=== PATIENT | female | born 1985 | race Caucasian/White ===

== ENCOUNTER 2018-04-25 23:26 | Emergency (ER) | payer MEDICAID ==
[~2018-04-25] VITALS: Ht 165.1 cm; Wt 98.4 kg
[2018-04-25 23:33] VITALS: BP 147/90
--- NOTE | 2018-04-25 23:45 | NUR ---
PT AMBULATED TO LOBBY WITH VSS. PROVIDED PT WITH URINE CUP.
--- NOTE | 2018-04-25 23:45 | NUR ---
BIB SELF CO VAGINAL BLEEDING SINCE YESTERDAY. PT IS 7 WEEKS . PT ALSO CO 8/10 STABBING ABDOMINAL PAIN THAT RADIATES TO LOWER BACK THAT COMES AND GOES. VSS. PT POSITIONED FOR COMFORT. SIDE RAIL UP X 1. ERMD MADE AWARE.
[2018-04-26 00:18] LABS: BASOPHILS % (AUTO) 0.6 % (0.0-2.0); EOSINOPHILS # (AUTO) 0.1 K/uL (0-0.4); EOSINOPHILS % (AUTO) 1.3 % (0.0-4.0); HEMATOCRIT 39.1 % (36-48); LYMPHOCYTES # (AUTO) 3.8 K/uL (2.5-16.5); MEAN CORPUSCULAR HEMOGLOBIN 28 pg (27-31); MEAN CORPUSCULAR HGB CONC 33 g/dL (33-37); MEAN CORPUSCULAR VOLUME 85.4 fL (80-94); MONOCYTES # (AUTO) 0.4 K/uL (0.8-1.0); MONOCYTES % (AUTO) 4.7 % (1.7-9.3); NEUTROPHILS # (AUTO) 3.4 K/uL (1.8-7.7); NEUTROPHILS % (AUTO) 44.4 % (42.2-75.2); PLATELET COUNT (AUTO) 331 K/uL (140-450); RED BLOOD CELL COUNT(AUTO) 4.59 MIL/uL (4.20-5.40); RED CELL DISTRIBUTION WIDTH 14.1 % (11.6-13.7); WHITE BLOOD COUNT (AUTO) 7.7 K/uL (4.8-10.8)
[2018-04-26 00:27] LABS: APPEARANCE,URINE HAZY (CLEAR); BILIRUBIN,URINE NEGATIVE (NEGATIVE); BLOOD, URINE 3+ (NEGATIVE); COLOR,URINE YELLOW (YELLOW); LEUKOCYTE ESTERASE ,URINE TRACE (NEGATIVE); NITRITE, URINE NEGATIVE (NEGATIVE); UGLUCOSE NEGATIVE (NEGATIVE)
--- NOTE | 2018-04-26 00:32 | NUR ---
US IN PROCESS IN XRAY DEPT.
[2018-04-26 00:45] LABS: WBC,URINE 80-100 /HPF (0-5)
[2018-04-26 00:46] LABS: TRICHOMONAS,URINE Moderate /HPF (None Seen)
--- NOTE | 2018-04-26 01:03 | NUR ---
PT RETURNED FROM US IN WHEELCHAIR TO ER BED 12
[2018-04-26] MEDS ORDERED: ACETAMINOPHEN EXTRA STRENGTH 500 MG TAB PO ONE (02:55)
[2018-04-26 03:11] VITALS: BP 147/90
== END 2018-04-26 03:11 | disposition home or self-care (01) ==
LOC: MED 23:26
DX: O03.9 Complete or unspecified spontaneous abortion without complication (principal); O23.41 Unspecified infection of urinary tract in pregnancy, first trimester; O24.419 Gestational diabetes mellitus in pregnancy, unspecified control; O13.1 Gestational [pregnancy-induced] hypertension without significant proteinuria, first trimester; Z3A.01 Less than 8 weeks gestation of pregnancy
CPT/HCPCS: 36415; 76817; 81001; 81025; 84702; 85025; 86900; 86901; 87086; 99284; Q0092